=== PATIENT | female | born 1990 | race Caucasian/White ===

== ENCOUNTER 2019-05-13 12:33 | Emergency (ER) | payer SELFPAY ==
[~2019-05-13] VITALS: Ht 162.6 cm; Wt 43.6 kg
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
[2019-05-13] MEDS ORDERED: IV NORMAL SALINE 1,000ML 1,000 ML IV ONE (13:00)
[2019-05-13 13:40] LABS: BASO % 0 % (0-3); EOS % 1 % (0-3); HEMATOCRIT 44.4 % (36.0-47.0); LYMPH # 1.4 x10^3/uL (1.0-4.8); LYMPH % 18 % (24-48); MEAN CORPUSCULAR HEMOGLOBIN 31 pg (25-35); MEAN CORPUSCULAR HGB CONC 34 g/dL (31-37); MEAN CORPUSCULAR VOLUME 92 fL (79-100); MONO # 0.7 x10^3/uL (0.0-1.1); MONO % 9 % (0-9); NEUT # 5.6 x10^3uL (1.8-7.7); NEUT % 72 % (31-73); PLATELET COUNT 294 x10^3/uL (140-400); RED BLOOD COUNT 4.82 x10^6/uL (3.50-5.40); RED CELL DISTRIBUTION WIDTH 13.1 % (11.5-14.5); WHITE BLOOD COUNT 7.8 x10^3/uL (4.0-11.0)
[2019-05-13 13:51] LABS: ALBUMIN 4.4 g/dL (3.4-5.0); ALBUMIN/GLOBULIN RATIO 1.1 (1.0-1.7); CALCIUM 9.3 mg/dL (8.5-10.1); CREATININE 0.9 mg/dL (0.6-1.0); POTASSIUM 3.9 mmol/L (3.5-5.1); TOTAL BILIRUBIN 0.6 mg/dL (0.2-1.0); TOTAL PROTEIN 8.3 g/dL (6.4-8.2)
[2019-05-13 13:56] LABS: SALIC < 0.2 mg/dL (2.8-20.0)
[2019-05-13 13:57] LABS: ACETAMIN < 2.0 mcg/mL (10-30)
[2019-05-13] MEDS ORDERED: HALOPERIDOL LACT 5 MG/ML VIAL. IM ONE (14:15)
[2019-05-13 15:47] LABS: BARBITURATES POS (NEG); BENZODIAZEPINES POS (NEG); CANNABINOIDS NEG (NEG); COCAINE NEG (NEG); METHADONE NEG (NEG); OPIATES NEG (NEG); PHENCYCLIDINE NEG (NEG)
[2019-05-13 15:48] LABS: AMPHETAMINE/METHAMPHETAMINE NEG (NEG)
[2019-05-13 15:54] LABS: BILIRUBIN,URINE NEG (NEG); CLARITY,URINE HAZY; COLOR,URINE STRAW; GLUCOSE,URINE NEG (NEG); NITRITE,URINE NEG (NEG); UROBILINOGEN,URINE 0.2 mg/dL (0.2 mg/dL); WBC,URINE OCC /HPF (0-4)
[2019-05-13 15:55] LABS: AMORPHOUS SEDIMENT,UR PRESENT /HPF; BACTERIA,URINE 0 /HPF (0-FEW); SQUAMOUS EPITHELIAL CELL,UR OCC /LPF
[2019-05-13 16:37] VITALS: BP 125/76
== END 2019-05-13 16:51 | disposition home or self-care (01) ==
LOC: ER 12:33
DX: R45.1 Restlessness and agitation (principal); F31.9 Bipolar disorder, unspecified; F17.220 Nicotine dependence, chewing tobacco, uncomplicated
CPT/HCPCS: 36415; 80053; 80307; 80329; 81001; 81025; 82947; 83735; 85025; 96372; 99284; G0480; J1630; 82003; J7030